=== PATIENT | male | born 1985 | race Caucasian/White ===

== ENCOUNTER 2019-05-30 00:23 | Emergency (ER) | payer SELFPAY ==
--- NOTE | 2019-05-30 00:37 | PDOC ---
History of Present Illness - General Stated Complaint: ACCIDNENTLY OVERDOSE Time Seen by Provider: 05/30/19 00:36 - History of Present Illness Initial Comments: 05/30/19 00:58 33 year old man with a history of schizophrenia who presents with loss of consciousness after using cocaine and alcohol. Per witnesses the patient was gasping for air and lost consciousness. He had 2 epsidoes of nbnb emesis. He denies chest pain, shortness ofb reath, ROS GENERAL/CONSTITUTIONAL: No fever or chills. No weakness. HEAD, EYES, EARS, NOSE AND THROAT: No change in vision. No ear pain or discharge. No sore throat. CARDIOVASCULAR: No chest pain or shortness of breath RESPIRATORY: No cough, wheezing, or hemoptysis. GASTROINTESTINAL: No nausea, vomiting, diarrhea or constipation. GENITOURINARY: No dysuria, frequency, or change in urination. MUSCULOSKELETAL: No joint or muscle swelling or pain. No neck or back pain. SKIN: No rash NEUROLOGIC: No headache, vertigo, loss of consciousness, or change in strength/ sensation. ENDOCRINE: No increased thirst. No abnormal weight change HEMATOLOGIC/LYMPHATIC: No anemia, easy bleeding, or history of blood clots. ALLERGIC/IMMUNOLOGIC: No hives or skin allergy. PE GENERAL: Awake, alert, and fully oriented, in no acute distress HEAD: No signs of trauma, normocephalic, atraumatic EYES: PERRLA, EOMI, sclera anicteric, conjunctiva clear ENT: Auricles normal inspection, hearing grossly normal, nares patent, oropharynx clear without exudates. Moist mucosa NECK: Normal ROM, supple, no lymphadenopathy, JVD, or masses LUNGS: No distress, speaks full sentences, clear to auscultation bilaterally HEART: Regular rate and rhythm, normal S1 and S2, no murmurs, rubs or gallops, peripheral pulses normal and equal bilaterally. ABDOMEN: Soft, nontender, normoactive bowel sounds. No guarding, no rebound. No masses EXTREMITIES : Normal inspection, Normal range of motion, no edema. No clubbing or cyanosis. NEUROLOGICAL: Cranial nerves II through XII grossly intact. Normal speech, normal gait, no focal sensorimotor deficits SKIN: Warm, Dry, normal turgor, no rashes or lesions noted GENITAL: uncircumcised male, vertical lie of testes, no inguinal lymphadenopathy , nontenderness to epididymal palpation, no erythema, lesions or ulcers MDM DDX including but not limited to: W/U: - TX: - Scores: ED Course: Patient stable for discharge. Informed of all lab and imaging results. Given follow up instructions and strict return precautions. Patient expressed understanding and agree to plan. [employer] #: Kaci Ashley, PGY2 Emergency Medicine Past History - Past Medical History Allergies/Adverse Reactions: Allergies Allergy/AdvReac Type Severity Reaction Status Date / Time No Known Allergies Allergy Verified 05/30/19 03:04 Home Medications: Ambulatory Orders NK [No Known Home Medication] 05/30/19 ED Treatment Course - LABORATORY CBC & Chemistry Diagram: 05/30/19 01:20 05/30/19 01:20 *DC/Admit/Observation/Transfer Diagnosis at time of Disposition: Cocaine use, Alcohol intoxication - Discharge Dispostion Disposition: HOME Condition at time of disposition: Stable Decision to Admit order: No - Referrals - Patient Instructions Printed Discharge Instructions: DI for Alcohol Abuse, DI for Cocaine Use Disorder Additional Instructions: You were seen in the ED after having difficulty breathing and loss of consciousness after using cocaine and alcohol You were evaluated with labwork and treated symptomatically You refused rehab at this time You should stop using cocaine and alcohol. Return to the ED immediately if you experience repeat loss of consciousness, headache, nausea, vomiting, chest pain or shortness of breath. - Post Discharge Activity
[2019-05-30] MEDS ORDERED: SODIUM CHLORIDE 1,000 ML IV SCH (00:45)
[2019-05-30 01:57] LABS: BASO % 0.6 % (0-2.0); EOS % 1.6 % (0-4.5); HEMATOCRIT 43.3 % (35.4-49); HEMOGLOBIN 13.6 GM/dL (11.7-16.9); LYMPH % 18.4 % (8-40); MCH 23.1 pg (25.7-33.7); MCHC 31.4 g/dl (32.0-35.9); MEAN CELL VOLUME 73.8 fl (80-96); MEAN PLT VOLUME 9.6 fl (7.5-11.1); MONO % 5.8 % (3.8-10.2); NEUT % 73.6 % (42.8-82.8); PLATELET COUNT 300 K/MM3 (134-434); RBC 5.87 M/mm3 (4.00-5.60); WHITE BLOOD COUNT 14.6 K/mm3 (4.0-10.0)
[2019-05-30 02:18] LABS: ALBUMIN 4.1 g/dl (3.4-5.0); BILIRUBIN,TOTAL 0.2 mg/dL (0.2-1); BLOOD UREA NITROGEN 19.9 mg/dL (7-18); CALCIUM 8.8 mg/dL (8.5-10.1); CREATININE 1.2 mg/dL (0.55-1.3); POTASSIUM 4.1 mmol/L (3.5-5.1); TOT PROT 7.1 g/dl (6.4-8.2)
[2019-05-30 04:07] VITALS: PULSE 90; BMI 33.5
--- NOTE | 2019-05-30 05:18 | PDOC ---
Documentation entered by Lois Hoffman SCRIBE, acting as scribe for Leslie Gallegos MD. Leslie Gallegos MD: This documentation has been prepared by the eugeneibe, Lois Hoffman SCRIBE, under my direction and personally reviewed by me in its entirety. I confirm that the documentation accurately reflects all work, treatment, procedures, and medical decision making performed by me. Attending Attestation - Resident Resident Name: Kaci Ashley - ED Attending Attestation I have performed the following: I have examined & evaluated the patient, The case was reviewed & discussed with the resident, I agree w/resident's findings & plan - HPI HPI: 05/30/19 01:38 The patient is a 33 year old male with a significant past medical history of schizophrenia who presents to the emergency department via EMS s/p loss of consciousness earlier today. The patient endorses use of cocaine and etoh earlier today and family at bedside notes that the patient began to be agitated and breathing shallow. The patient's family reports that the patient subsequently lost consciousness. As per ems , patient was given compressions and 2-3 of Narcan enroute. The patient denies any other symptoms or complaints on exam. - Physicial Exam PE: 05/30/19 05:31 Agree with resident exam. Labs normal; - Medical Decision Making 05/30/19 03:32 Pt has low MCVs and microcytic RBCs; he has alcoholic liver disease that is mild. Rest of labs are normal We are awaiting a UTOX before we send him home 05/30/19 05:14 Pt stable for discharge home. He is refusing detox. 05/30/19 05:30 Pt is here for cocaine and marijuana;
[2019-05-30 05:26] LABS: METHADONE, UR NEGATIVE ng/ml (CUTOFF=300); OPIATES, URI NEGATIVE ng/ml (CUTOFF=300); PHENCYCLIDINE,URINE NEGATIVE ng/ml (CUTOFF=25); URINE AMPHETAMINES NEGATIVE ng/ml (CUTOFF=500); URINE BARBITURATES NEGATIVE ng/ml (CUTOFF=200); URINE BENZODIAZEPINES NEGATIVE ng/ml (CUTOFF=200)
[2019-05-30 05:28] LABS: COCAINE, UR POSITIVE ng/ml (CUTOFF=300)
[2019-05-30 05:36] VITALS: BP 134/94; TEMP 98.4
--- NOTE | 2019-05-30 11:25 | EKG ---
Test Reason : Blood Pressure : / mmHG Vent. Rate : 091 BPM Atrial Rate : 091 BPM P-R Int : 162 ms QRS Dur : 106 ms QT Int : 394 ms P-R-T Axes : 075 023 032 degrees QTc Int : 484 ms NORMAL SINUS RHYTHM INCOMPLETE RIGHT BUNDLE BRANCH BLOCK PROLONGED QT ABNORMAL ECG NO PREVIOUS ECGS AVAILABLE CLINICAL CORRELATION IS RECOMMENDED Confirmed by ESTER HERNANDEZ MD ([id number]) on 05/30/2019 11:25:11 AM Referred By: Confirmed By:ESTER HERNANDEZ MD
== END 2019-05-30 05:36 | disposition home or self-care (01) ==
LOC: JER 00:23
PROC: 3E0337Z Introduction of Electrolytic and Water Balance Substance into Peripheral Vein, Percutaneous Approach (ICD-10-PCS; principal; 2019-05-30)
DX: F10.120 Alcohol abuse with intoxication, uncomplicated (principal); F14.10 Cocaine abuse, uncomplicated; F12.10 Cannabis abuse, uncomplicated
CPT/HCPCS: 36415; 80053; 80307; 85025; 93005; 93010; 99285-25; J7030

== ENCOUNTER 2022-12-24 19:38 | Emergency (ER) | payer SELFPAY ==
[2022-12-24 19:48] VITALS: BP 134/82; PULSE 106; RESP 18; TEMP 98; BMI 33.0
[2022-12-24] MEDS ORDERED: morphine CARPU-JECT 4 MG/1 ML DISP.SYRIN IVPUSH ONE (21:27)
[2022-12-24] MEDS ORDERED: morphine SULFATE 4 MG/ML VIAL ONE (21:58)
[2022-12-25] MEDS ORDERED: KETOROLAC TROMETHAMINE 15 MG/ML VIAL IVPUSH ONE (01:39)
[2022-12-25] MEDS ORDERED: KETOROLAC TROMETHAMINE 15 MG/ML VIAL ONE (01:41)
== END 2022-12-25 04:11 | disposition home or self-care (01) ==
LOC: JERFT 19:38 → JER 19:38
PROC: 3E033NZ Introduction of Analgesics, Hypnotics, Sedatives into Peripheral Vein, Percutaneous Approach (ICD-10-PCS; principal; 2022-12-24)
PROC: 3E033GC Introduction of Other Therapeutic Substance into Peripheral Vein, Percutaneous Approach (ICD-10-PCS; 2022-12-24)
DX: S82.301A Unspecified fracture of lower end of right tibia, initial encounter for closed fracture (principal); W10.9XXA Fall (on) (from) unspecified stairs and steps, initial encounter
CPT/HCPCS: 73610-TC-RT-FY; 73630-TC-RT-FY; 73700-TC-RT; 99284-25

== ENCOUNTER 2022-12-26 15:42 | Emergency (ER) | payer OTHER ==
[2022-12-26 15:55] VITALS: BP 113/69; PULSE 92; RESP 18; TEMP 97.9; BMI 34.4
[2022-12-26] MEDS ORDERED: oxyCODONE HCL 5 MG TABLET PO ONE (16:20)
[2022-12-26] MEDS ORDERED: oxyCODONE HCL 5 MG TABLET ONE (16:23)
== END 2022-12-26 17:06 | disposition home or self-care (01) ==
LOC: JERFT 15:42
DX: S82.301A Unspecified fracture of lower end of right tibia, initial encounter for closed fracture (principal); W10.9XXA Fall (on) (from) unspecified stairs and steps, initial encounter
CPT/HCPCS: 73502-TC-RT-FY; 99283-25

== ENCOUNTER 2024-05-15 20:25 | Observation (INO) | payer BC, OTHER ==
[2024-05-15] MEDS ORDERED: FAMOTIDINE 20 MG/50 ML IVPB 20 MG/50 ML MG IVPB ONE (20:39)
[2024-05-15] MEDS ORDERED: methylPREDNISolone NA SUCC 125 MG/2 ML VIAL ONE (20:39)
[2024-05-15] MEDS: methylPREDNISolone NA SUCC 125 MG/2 ML VIAL IVPB ONE (20:45)
[2024-05-15] MEDS: FAMOTIDINE 20 MG/50 ML IVPB 20 MG/50 ML MG IVPB ONE (20:45)
[2024-05-15] MEDS: SODIUM CHLORIDE 0.9% 500 ML INFUS.BAG IV ONE (20:45)
[2024-05-15 20:59] LABS: BASO % 0.7 % (0-2.0); EOS % 4.7 % (0-4.5); HEMATOCRIT 45.7 % (35.4-49); HEMOGLOBIN 14.8 GM/dL (11.7-16.9); LYMPH % 20.4 % (8-40); MCH 24.1 pg (25.7-33.7); MCHC 32.5 g/dl (32.0-35.9); MEAN CELL VOLUME 74.1 fl (80-96); MEAN PLT VOLUME 9.1 fl (7.5-11.1); MONO % 6.1 % (3.8-10.2); NEUT % 68.1 % (42.8-82.8); PLATELET COUNT 264 10^3/uL (134-434); RBC 6.17 M/mm3 (4.00-5.60); RDW 15.1 % (11.9-15.9); WHITE BLOOD COUNT 9.5 K/mm3 (4.0-10.0)
[2024-05-15 21:32] LABS: ALBUMIN 4.1 g/dl (3.4-5.0); CALCIUM 8.8 mg/dL (8.5-10.1)
[2024-05-15 21:33] LABS: BLOOD UREA NITROGEN 18.4 mg/dL (7-18)
[2024-05-15 21:37] LABS: BILIRUBIN,TOTAL 0.4 mg/dL (0.2-1)
[2024-05-15] MEDS: EPINEPHrine 1:1,000 0.3 MG/0.3 ML SYR IM ONE (22:06)
[2024-05-16] MEDS: EPINEPHrine 1:1,000 0.3 MG/0.3 ML SYR IM ONE (00:52)
[2024-05-16] MEDS: SODIUM CHLORIDE 1,000 ML IV SCH (03:21)
[2024-05-16 07:37] LABS: BASO % 0.1 % (0-2.0); EOS % 0.4 % (0-4.5); HEMATOCRIT 44.3 % (35.4-49); HEMOGLOBIN 14.6 GM/dL (11.7-16.9); LYMPH % 7.2 % (8-40); MCH 24.2 pg (25.7-33.7); MEAN CELL VOLUME 73.4 fl (80-96); MEAN PLT VOLUME 9.3 fl (7.5-11.1); MONO % 1.2 % (3.8-10.2); NEUT % 91.1 % (42.8-82.8); PLATELET COUNT 257 10^3/uL (134-434); RBC 6.03 M/mm3 (4.00-5.60); RDW 15.4 % (11.9-15.9)
[2024-05-16 08:16] LABS: PHOSPHOROUS 2.5 mg/dL (2.5-4.9)
[2024-05-16 08:45] LABS: ANISOCYTOSIS 2+; MACROCYTOSIS 0; OVALOCYTE 1+
[2024-05-16] MEDS ORDERED: FAMOTIDINE 20 MG/50 ML IVPB 20 MG/50 ML MG IVPB SCH (10:00)
[2024-05-16 15:31] VITALS: BP 118/75; PULSE 74; RESP 17; TEMP 97.9; BMI 35.3
[2024-05-16] MEDS: methylPREDNISolone NA SUCC 40 MG/1 ML VIAL IVPUSH SCH (17:09)
== END 2024-05-16 18:54 | disposition home or self-care (01) ==
LOC: JER 20:25 → JERBED 05-16 01:59 → J6S 05-16 11:59
PROVIDERS: ADMIT Internal Medicine; ATTEND Internal Medicine
PROC: 3E033GC Introduction of Other Therapeutic Substance into Peripheral Vein, Percutaneous Approach (ICD-10-PCS; principal; 2024-05-16)
PROC: 3E033GC Introduction of Other Therapeutic Substance into Peripheral Vein, Percutaneous Approach (ICD-10-PCS; 2024-05-16)
PROC: 3E0337Z Introduction of Electrolytic and Water Balance Substance into Peripheral Vein, Percutaneous Approach (ICD-10-PCS; 2024-05-16)
DX: L23.7 Allergic contact dermatitis due to plants, except food (principal); F20.9 Schizophrenia, unspecified; J45.909 Unspecified asthma, uncomplicated; H02.849 Edema of unspecified eye, unspecified eyelid; F12.21 Cannabis dependence, in remission; F14.21 Cocaine dependence, in remission; Z87.891 Personal history of nicotine dependence
CPT/HCPCS: 36415; 80053; 82962; 83036; 83735; 84100; 85025; 85027; 93005; 93010; 96361; 96365; 96375; 96376; 99285-25; G0378